=== PATIENT | female | born 1960 | race Caucasian/White ===

== ENCOUNTER 2024-05-04 09:25 | Emergency (ER) | payer MEDICAID, OTHER ==
[~2024-05-04] VITALS: Ht 165.1 cm; Wt 117.9 kg
[2024-05-04] MEDS: SUCRALFATE 1 G/10 ML LIQUID UDC GT STA (09:40)
[2024-05-04] MEDS: MAG HYDROX/AL HYDROX/SIMETH 30 ML LIQUID UDC PO ONE (09:40)
[2024-05-04] MEDS ORDERED: MAG HYDROX/AL HYDROX/SIMETH 30 ML LIQUID UDC ONE (09:40)
[2024-05-04] MEDS ORDERED: SUCRALFATE 1 G/10 ML LIQUID UDC ONE (09:40)
[2024-05-04] MEDS ORDERED: LIDOCAINE VISCUS 2% 15 ML UDC ONE (09:40)
[2024-05-04] MEDS: LIDOCAINE VISCUS 2% 15 ML UDC MM ONE (09:40)
[2024-05-04 09:51] LABS: BASOPHILS # (AUTO) 0.1 K/UL (0.0-0.2); BASOPHILS % (AUTO) 0.8 % (0.0-2.0); EOSINOPHILS # (AUTO) 0.1 K/uL (0.0-0.7); EOSINOPHILS % (AUTO) 1.4 % (0.0-7.0); HEMATOCRIT 30.6 % (31.2-41.9); HEMOGLOBIN 9.5 g/dL (10.9-14.3); LYMPHOCYTES # (AUTO) 1.8 K/uL (0.8-4.8); LYMPHOCYTES % (AUTO) 26.3 % (20.5-51.5); MEAN CORPUSCULAR HEMOGLOBIN 20.7 uug (24.7-32.8); MEAN CORPUSCULAR HGB CONC 31 g/dL (32.3-35.6); MEAN CORPUSCULAR VOLUME 66.6 fL (75.5-95.3); MONOCYTES # (AUTO) 0.3 K/uL (0.1-1.30); MONOCYTES % (AUTO) 4.9 % (0.0-11.0); NEUTROPHILS # (AUTO) 4.4 K/uL (1.8-8.9); NEUTROPHILS % (AUTO) 66.6 % (38.5-71.5); PLATELET COUNT (AUTO) 264 K/uL (179-408); RED CELL DISTRIBUTION WIDTH 19.3 % (12.3-17.7); WHITE BLOOD COUNT (AUTO) 6.7 K/uL (3.8-11.8)
[2024-05-04 09:56] LABS: DIFFERENTIAL COMMENT 1
[2024-05-04 10:03] LABS: CALCIUM 8.8 mg/dL (8.5-10.1); CARBON DIOXIDE 31 mmol/L (21-32); CHLORIDE 99 mmol/L (98-107); CREATININE 0.8 mg/dL (0.6-1.3); GLUCOSE 165 mg/dL (74-106); POTASSIUM 3.9 mmol/L (3.5-5.1); SODIUM SERUM 131 mmol/L (136-145); UREA NITROGEN, BLOOD 11 mg/dL (7-18)
[2024-05-04 10:14] VITALS: BP 191/89
[2024-05-04] MEDS: LOSARTAN POTASSIUM 50 MG TABLET PO STA (10:14)
[2024-05-04 10:15] LABS: ALANINE AMINOTRANSFERASE 38 U/L (14-59); ALBUMIN 3.2 g/dL (3.4-5.0); ALKALINE PHOSPHATASE 101 U/L (50-136); ASPARTATE AMINOTRANSFERASE 49 U/L (15-37); BILIRUBIN,DIRECT 0.2 mg/dL (0.0-0.2); BILIRUBIN,TOTAL 0.4 mg/dL (0.2-1.0); NT-PRO BNP 277 pg/mL (0-125); TOTAL PROTEIN, SERUM 7.2 g/dL (6.4-8.2)
[2024-05-04] MEDS: IV NORMAL SALINE 1000 ML BAG IV ONE (10:16)
[2024-05-04] MEDS ORDERED: IOHEXOL 300MG/ML 100 ML INFUS..BTL ONE (11:03)
[2024-05-04] MEDS ORDERED: IV NORMAL SALINE 250 ML IV ONE (11:03)
[2024-05-04] MEDS ORDERED: SWABABLE VALVE TRANSFER SET EA MC ONE (11:03)
[2024-05-04] MEDS ORDERED: OXYCODONE HCL 5 MG TABLET ONE ×2 (11:49→12:30)
[2024-05-04] MEDS: OXYCODONE HCL 5 MG TABLET PO ONE ×2 (11:51→12:32)
[2024-05-04] MEDS ORDERED: SUCR1TAB31 PO (12:52)
[2024-05-04] MEDS ORDERED: FERR324T17 PO (12:52)
[2024-05-04 12:56] LABS: IRON, SERUM 24 ug/dL (50-175)
[2024-05-04 13:00] VITALS: O2SAT 96
[2024-05-04 13:10] LABS: FERRITIN 54 ng/mL (8-252)
== END 2024-05-04 13:02 | disposition home or self-care (01) ==
LOC: ER 09:25
DX: R07.89 Other chest pain (principal); D50.9 Iron deficiency anemia, unspecified; R51.9 Headache, unspecified; K21.9 Gastro-esophageal reflux disease without esophagitis; E11.9 Type 2 diabetes mellitus without complications; Z79.899 Other long term (current) drug therapy; Z88.1 Allergy status to other antibiotic agents
CPT/HCPCS: 99285; 70450; 96360; 71045; 80076; 80048; 82728; 83880; 83550; 83690; 85025; 84484 ×2; 36415; 93005; 74177; Q9967; J7040; A4606; A4663